=== PATIENT | male | born 1965 | race Caucasian/White ===

== ENCOUNTER 2016-07-07 10:47 | Emergency (ER) | payer OTHER | END 2016-07-07 12:30 | disposition home or self-care (01) | LOC: FER 10:47 | DX: S16.1XXA Strain of muscle, fascia and tendon at neck level, initial encounter (principal); S46.001A Unspecified injury of muscle(s) and tendon(s) of the rotator cuff of right shoulder, initial encounter; R07.9 Chest pain, unspecified; I25.2 Old myocardial infarction; I10 Essential (primary) hypertension; F17.210 Nicotine dependence, cigarettes, uncomplicated; Z79.01 Long term (current) use of anticoagulants; Z86.711 Personal history of pulmonary embolism; Z88.8 Allergy status to other drugs, medicaments and biological substances; V89.2XXA Person injured in unspecified motor-vehicle accident, traffic, initial encounter; Y92.830 Public park as the place of occurrence of the external cause | CPT/HCPCS: 71020; 71100; 73000; 73030; J1885 ==